=== PATIENT | male | born 1960 | race Two or more races ===

== ENCOUNTER → 2020-06-25 | Outpatient (CLI) | payer MEDICARE, OTHER ==
--- NOTE | 2020-06-25 09:36 | RAD ---
EXAM: ABDOMINAL ULTRASOUND. HISTORY: Right upper quadrant abdominal pain. COMPARISON: CT abdomen and pelvis with IV contrast of 05/01/2020. FINDINGS: Sonographic evaluation of the abdomen was performed. Liver shows diffuse hepatic increased echogenicity compatible with steatosis. Liver measures 20.4 cm in length. A cyst in the left hepatic lobe measuring 1.9 cm is not significantly changed. There are o therwise no focal lesions. The spleen measures 10.7 cm. The gallbladder is unremarkable without evidence of stones, wall thickening or pericholecystic fluid. There is no sonographic Olivier sign. The common duct measures 4 mm. Pancreas is poorly visualized du e to bowel gas. The right kidney measures 13.3 x 5.7 x 5.5 cm. Cortical thickness and echogenicity are preserved. The re is no hydronephrosis. The left kidney measures 13.3 x 5.6 x 7.3 cm. Cortical thickness and echogen icity are preserved. There is no hydronephrosis. The abdominal aorta and inferior vena cava are poorly visualized due to bowel gas. IMPRESSION: 1. Hepatic steatosis and hepatomegaly. Otherwise unremarkable abdominal ultrasound with poor visualiz ation of the abdominal aorta, IVC and pancreas due to bowel gas artifact.. Electronically signed by: Augustin Cha MD (06/25/2020 9:34 AM) [id number]
== END ==
LOC: US 08:28
PROVIDERS: ATTEND Family Medicine
DX: K76.0 Fatty (change of) liver, not elsewhere classified (principal); K81.9 Cholecystitis, unspecified
CPT/HCPCS: 76700

== ENCOUNTER → 2020-08-06 | Outpatient (CLI) | payer MEDICARE, OTHER ==
--- NOTE | 2020-08-06 16:57 | CARD ---
MR#: [id number] Date of Study: 08/06/2020 Ordering Physician: ARMINDA JUARES, Referring Physician: ARMINDA JUARES, Tech: Scarlet Morse [facility] APPROVED REPORT EXAM: Two-dimensional and M-mode echocardiogram with Doppler and color Doppler. Other Information Quality : Good INDICATION Hypertension/HCVD 2D DIMENSIONS RVDd2.4 (2.9-3.5cm)Left Atrium(2D)3.8 (1.6-4.0cm) IVSd1.5 (0.7-1.1cm)Aortic Root(2D)3.9 (2.0-3.7cm) LVDd5.0 (3.9-5.9cm)LVOT Diameter2.3 (1.8-2.4cm) PWd1.3 (0.7-1.1cm)LVDs3.6 (2.5-4.0cm) FS (%) 30.0 %SV61.7 ml LVEF(%)60.0 (>50%) Aortic Valve AoV Peak Eduardo.150.4cm/sAoV VTI26.5cm AO Peak GR.9.1mmHgLVOT Peak Eduardo.120.0cm/s AO Mean GR.5mmHgAVA (VMAX)3.30cm2 WARREN (VTI)3.60cm2 Mitral Valve MV E Vegbhekz122.6cm/sMV DECEL [id number] MV A Ijtpxlud26.5cm/sE/A Ratio2.4 Tricuspid Valve TR P. Vpkbizqj112fj/sRAP AQHCNBKI2zjQj TR Peak Gr.15nbKiYVJD72osKj Pulmonary Vein S1 Pevskbfc59.4cm/sD2 Crzzeafv42.3cm/s LEFT VENTRICLE The left ventricle is normal size. There is mild to moderate concentric left ventricular hypertrophy. The left ventricular systolic function is normal. The Ejection Fraction is 60-65%. There is normal L V segmental wall motion. Tissue Doppler imaging reveals moderate left ventricular diastolic dysfuncti on. RIGHT VENTRICLE The right ventricle is normal size. The right ventricular systolic function is normal. ATRIA The left atrium size is normal. The right atrium size is normal. The interatrial septum is intact wit h no evidence for an atrial septal defect or patent foramen ovale as noted on 2-D or Doppler imaging. AORTIC VALVE The aortic valve is calcified but opens well. Doppler and Color Flow revealed no significant aortic r egurgitation. There is no significant aortic valvular stenosis. MITRAL VALVE The mitral valve is calcified but opens well. There is no evidence of mitral valve prolapse. There is no mitral valve stenosis. Doppler and Color-flow revealed mild mitral regurgitation. TRICUSPID VALVE The tricuspid valve is normal in structure and function. Doppler and Color Flow revealed trace tricus pid regurgitation. The PA pressure was estimated at 22 mmHg. There is no tricuspid valve stenosis. PULMONIC VALVE The pulmonic valve is not well visualized. Doppler and Color Flow revealed no pulmonic valvular regur gitation. There is no pulmonic valvular stenosis. GREAT VESSELS The aortic root is normal in size. The ascending aorta is mildly dilated at 3.7 cm. The IVC is normal in size and collapses >50% with inspiration. PERICARDIAL EFFUSION There is no evidence of significant pericardial effusion. Critical Notification Critical Value: No <Conclusion> The left ventricular systolic function is normal. The Ejection Fraction is 60-65%. There is normal LV segmental wall motion. Tissue Doppler imaging reveals moderate left ventricular diastolic dysfunction. Mild mitral regurgitation. Trace tricuspid regurgitation. The PA pressure was estimated at 22 mmHg. There is no evidence of significant pericardial effusion. Signed by : Kwkau Sykes, Electronically Approved : 08/06/2020 16:56:38
== END ==
LOC: ECHO 14:48
PROVIDERS: ATTEND Internal Medicine Cardiovascular Disease
DX: I08.0 Rheumatic disorders of both mitral and aortic valves (principal); I77.810 Thoracic aortic ectasia; I11.9 Hypertensive heart disease without heart failure
CPT/HCPCS: 93306